=== PATIENT | female | born 1940 | race Caucasian/White ===

== ENCOUNTER → 2016-10-18 | Day surgery (SDC) | payer MEDICARE, OTHER ==
[~2016-10-18] MED LIST: ACETAMINOPHEN 1000 MG/100 ML VIAL IV ONE; BUPIVACAINE/EPINEPHRINE 0.25% 50 ML VIAL ONE; CELE200 PO; LACTATED RINGER'S 1000 ML INJ 1,000 ML ONE; LIDOCAINE 1%/EPINEPHrine 1:100,000 SOLN 20 ML VIAL ONE; MIDAZOLAM HCL 2 MG/2 ML VIAL ONE; NEOMYCIN/POLYMYXIN/BACITRACIN OINT 15 GM TUBE ONE; OMEP20CA5 PO; ONDANSETRON HCL 4 MG/2 ML VIAL IV PUSH ONE; PRIN10TA PO; PROPOFOL 200 MG/20 ML AMP IV ONE; SIMV20 PO; ceFAZolin INJ 1,000 MG VIAL ONE
--- NOTE | 2016-10-18 16:34 | TN ---
cc: DAVE HUMPHREY M.D. DATE OF SURGERY: 10/18/2016 PREOPERATIVE DIAGNOSIS Basal cell carcinoma located on the right nasal ala / dorsum. POSTOPERATIVE DIAGNOSIS Basal cell carcinoma located on the right nasal ala / dorsum. PROCEDURE: A wide local excision resultant primary defect of 1.5 x 2 cms. This required a tissue arrangement V to Y reconstruction for second defect of 3.5 x 2.5 cm SURGEON Dave Humphrey MD. ANESTHESIA: LMA general plus total of 10 cc of 1% lidocaine with epinephrine. ESTIMATED BLOOD LOSS: Minimal. COMPLICATIONS None. PROCEDURE: The procedure was properly consented, marked anesthetized skin sterilized with Betadine solution and sterile draping was applied proceeded to perform a wide local excision of this lesion located the right nasal ala / dorsum, and sent to frozen section which shows no evidence of pathology. With this the V to Y tissue arrangement construction was elevated and inset into the defect for second defect of 3.5 x 2.5 cm. I proceeded and closed the inset at this utilizing 4-0 Monocryl suture 5-0 fast-absorbing gut. Good viability of tissue was noted at the end of the case. Absorbent dressing applied. The patient tolerated the procedure well. MD VIRGIL Suarez/charlotte /2:29 PM /4:31 PM [facility]Myah
== END | disposition home or self-care (01) ==
LOC: ESDC 09:50
PROVIDERS: ATTEND Plastic Surgery
DX: C44.311 Basal cell carcinoma of skin of nose (principal)
CPT/HCPCS: 00300; 14060; 88305; 88331; J0131; J0690; J2250; J2405; J7120; J3010